=== PATIENT | female | born 1930 | race Caucasian/White ===

== ENCOUNTER 2017-04-20 18:56 | Emergency (ER) | payer MEDICARE, OTHER ==
--- NOTE | 2017-04-20 23:01 | RAD ---
LEFT KNEE FOUR VIEWS 04/20/2017 FINDINGS: The bones are mildly osteopenic, which could mask some subtle fractures. [id number], no fractur e is appreciated. No joint effusion is seen. There is mild medial joint space narrowing and osteop hytes. A jillian of bone above the patella does not appear acute. IMPRESSION: No acute bony findings. Mild lateral compartment arthritis. POS: HOME
== END 2017-04-20 19:58 | disposition home or self-care (01) ==
LOC: BURERS 18:56
DX: S81.012A Laceration without foreign body, left knee, initial encounter (principal); E11.9 Type 2 diabetes mellitus without complications; I10 Essential (primary) hypertension; E78.5 Hyperlipidemia, unspecified; F32.9 Major depressive disorder, single episode, unspecified; F17.210 Nicotine dependence, cigarettes, uncomplicated; W10.9XXA Fall (on) (from) unspecified stairs and steps, initial encounter
CPT/HCPCS: 12002

== ENCOUNTER 2017-11-29 22:49 | Emergency (ER) | payer MEDICARE, OTHER ==
[2017-11-29] MEDS ORDERED: AMOXicillin 250 MG CAP ONE (23:07)
[2017-11-29] MEDS ORDERED: Oxymetazoline HCl 0.05% ( 15 ML ) ONE (23:07)
== END 2017-11-29 23:15 | disposition home or self-care (01) ==
LOC: BURERS 22:49
DX: J06.9 Acute upper respiratory infection, unspecified (principal); E11.9 Type 2 diabetes mellitus without complications; I10 Essential (primary) hypertension; E78.5 Hyperlipidemia, unspecified; F32.9 Major depressive disorder, single episode, unspecified; F17.210 Nicotine dependence, cigarettes, uncomplicated
CPT/HCPCS: 99283

== ENCOUNTER 2019-03-07 14:47 | Inpatient (IN) | payer MEDICARE, OTHER ==
[2019-03-07 15:15] LABS: #Lymphocytes 0.5 thou/uL (1.20-3.40); #Monocytes 0.3 thou/uL (0.11-0.59); #Neutrophils 3.8 thou/uL (1.40-6.50); %Basophils 0.9 % (0.0-1.0); %Eosinophils 0.4 % (0.0-10.0); %Lymphocytes 9.8 % (21.0-51.0); %Monocytes 6.9 % (0.0-10.0); Hemoglobin 11.3 g/dL (12.0-16.0); Mean Corpuscular HGB CONC 31.6 g/dL (32.0-36.0); Mean Corpuscular Volume 88.6 fL (78.0-98.0); Mean Platelet Volume 6.6 fL (7.4-10.4); Platelet Count 165 thou/uL (130-400); RBC Distribution Width 13.6 % (11.5-14.5); Red Blood Cell (RBC) Count 4.02 mill/uL (4.20-5.40); White Blood Cell (WBC) Count 4.6 thou/uL (4.8-10.8)
[2019-03-07 15:30] LABS: ALT (SGPT) 22 U/L (8-55); AST (SGOT) 25 U/L (5-34); Alkaline Phosphatase 93 U/L (40-150); Anion Gap 14 mmol/L (10-20); BUN (Urea Nitrogen) 21 mg/dL (9.8-20.1); Bilirubin, Total 0.7 mg/dL (0.2-1.2); CK (CPK) 56 U/L (29-168); Calc. Creatinine Clearance 0 mL/min (70-130); Calcium 8.9 mg/dL (7.8-10.44); Carbon Dioxide 18 mmol/L (23-31); Chloride 108 mmol/L (98-107); Estimated GFR-MDRD 63; Globulin 3.4 g/dL (2.4-3.5); Glucose 172 mg/dL (83-110); Protein, Total 7.4 g/dL (6.0-8.3); Sodium 136 mmol/L (136-145)
[2019-03-07] MEDS ORDERED: Acetaminophen 650 MG Suppository ONE (15:30)
[2019-03-07 16:49] LABS: Clarity Cloudy (Clear)
[2019-03-07 16:50] LABS: Bilirubin Small (Negative); Blood, Urine Moderate (Negative); Glucose, Urine (Dipstick) Negative (Negative); Leukocyte Moderate (Negative); Nitrite Positive (Negative); Protein, Urine (Dipstick) 30 mg/dL (Neg-Trace); Specific Gravity, Urine 1.025 (1.005-1.030); Urobilinogen 0.2 mg/dL (0.2-1.0)
[2019-03-07 16:56] LABS: Bacteria/HPF 4+ HPF (None Seen); Oval Fat Bodies/HPF None Seen HPF (None Seen); RBC/HPF 0-3 HPF (0-3); Renal Epithelial None Seen HPF (0-3); Transitional Epithelial NONE SEEN HPF (0-3); Trichomonas/HPF None Seen HPF (None Seen); Yeast-All Forms None Seen HPF (None Seen)
[2019-03-07 16:57] LABS: Crystals/HPF None Seen HPF (Negative); Hyaline Casts/LPF NONE SEEN LPF (0-3 Hyaline); Other Casts/LPF None Seen LPF (0-3 Hyaline); Sperm/HPF None Seen HPF (None Seen)
[2019-03-07] MEDS ORDERED: cefTRIAXone\\ROCEPHIN 2 GM VIAL ONE (17:11)
[2019-03-07] MEDS ORDERED: Sodium Chloride 0.9% 100 ML ONE (17:12)
[2019-03-07] MEDS ORDERED: Acetaminophen 325 MG TAB PO PRN (18:23)
[2019-03-07] MEDS ORDERED: Ondansetron ODT 4 MG TAB SL PRN (18:23)
[2019-03-07] MEDS ORDERED: Ondansetron PF 4 MG/2 ML Vial IVP PRN (18:23)
[2019-03-07] MEDS ORDERED: Dextrose 5 %-0.45 % NaCl 1,000 ML IV SCH (18:30)
--- NOTE | 2019-03-07 18:43 | RAD ---
PORTABLE CHEST: 03/07/19 An AP portable film at 1511 is compared with a 09/21/15 study. The heart is normal in size and the lungs are clear. No infiltrate or effusion was seen. A calcified granuloma is noted in the right upper lobe that was present previously. IMPRESSION: No acute thoracic findings. POS: HOME
[2019-03-07] MEDS ORDERED: Dextrose 5% in Water 1,000 ML IV PRN (19:27)
[2019-03-07] MEDS ORDERED: Dextrose 50% Abboject 50 ML SYRINGE SLOW IVP PRN (19:27)
[2019-03-07] MEDS ORDERED: HumaLOG 300 UNITS/3 ML VIAL SC PRN (19:27)
[2019-03-07 20:01] VITALS: BMI 22.6
[2019-03-07 21:36] LABS: Troponin I Less than 0.010 ng/mL (< 0.028)
[2019-03-07] MEDS: Enoxaparin Sodium 30 MG/0.3 ML SYRINGE SC SCH (21:41)
[2019-03-07] MEDS: Sodium Chloride 0.45% 1,000 ML IV SCH (21:45)
[2019-03-07] MEDS: Atorvastatin Calcium 10 MG TAB PO SCH (21:59)
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
[2019-03-08 04:19] LABS: Anion Gap 12 mmol/L (10-20); BUN (Urea Nitrogen) 15 mg/dL (9.8-20.1); Calc. Creatinine Clearance 59 mL/min (70-130); Calcium 7.9 mg/dL (7.8-10.44); Carbon Dioxide 19 mmol/L (23-31); Chloride 109 mmol/L (98-107); Estimated GFR-MDRD Greater than 90; Glucose 87 mg/dL (83-110); Potassium 3.5 mmol/L (3.5-5.1); Sodium 136 mmol/L (136-145)
[2019-03-08 04:21] LABS: Troponin I Less than 0.010 ng/mL (< 0.028)
[2019-03-08 04:30] LABS: #Eosinphils 0.1 thou/uL (0.0-0.7); #Lymphocytes 0.9 thou/uL (1.20-3.40); #Monocytes 0.3 thou/uL (0.11-0.59); #Neutrophils 1.6 thou/uL (1.40-6.50); %Basophils 1.2 % (0.0-1.0); %Lymphocytes 30.6 % (21.0-51.0); %Monocytes 11.4 % (0.0-10.0); %Neutrophils 52.8 % (42.0-75.0); Band 2 % (5-11); Eosinophils 3 % (0-10); Hemoglobin 9.3 g/dL (12.0-16.0); Lymphocytes 31 % (21-51); MDiff Complete? YES; Mean Corpuscular HGB CONC 31.3 g/dL (32.0-36.0); Mean Corpuscular Hemoglobin 27.8 pg (27.0-31.0); Mean Corpuscular Volume 88.8 fL (78.0-98.0); Monocytes 11 % (0-10); Neutrophil 52 % (42-75); Ovalocytes SLIGHT = 2-5 cells (100X) (0-1/hpf); Platelet Count 115 thou/uL (130-400); Platelet Morphology Comment Appears Decreased; RBC Distribution Width 13.2 % (11.5-14.5); Red Blood Cell (RBC) Count 3.33 mill/uL (4.20-5.40)
[2019-03-08] MEDS: Sodium Chloride 0.45% 1,000 ML IV SCH ×4 (06:07→20:14)
[2019-03-08] MEDS: Cyanocobalamin (Vitamin B-12) 1,000 MCG TAB PO SCH (08:36)
[2019-03-08] MEDS: Ferrous Sulfate 325 MG TAB PO SCH ×2 (08:36→17:47)
[2019-03-08] MEDS: Fish Oil 1,000 MG CAP PO SCH (08:36)
[2019-03-08] MEDS: Aspirin 81 mg Enteric Coated Tablet PO SCH (08:37)
[2019-03-08] MEDS: metFORMIN 500 MG TAB PO SCH (08:37)
[2019-03-08] MEDS: cefTRIAXone\\ROCEPHIN 1 GM in Sodium Chloride 0.9% 100 ML IVPB SCH (08:38)
[2019-03-08] MEDS ORDERED: Losartan Potassium 50 MG TAB PO SCH (19:00)
--- NOTE | 2019-03-08 19:30 | PRG ---
DATE OF SERVICE: 03/08/2019 PRIMARY CARE PHYSICIAN: KADIE Deluca, at [facility] in [place]. SUBJECTIVE: The patient is doing well, she denies any pain, she has requested to remove the IV fluids. According to her daughter, she did not sleep well, she is requesting for a sleeping medicine tonight. OBJECTIVE: VITAL SIGNS: Blood pressure of 169/72, temperature of 98.1, pulse rate of 57, respiratory rate of 16, and O2 saturations 98% on room air. GENERAL: The patient is awake, oriented to herself, afebrile, not in respiratory distress. HEENT: Normocephalic and atraumatic. Pupils are equally reactive to light. NECK: Supple. Negative for lymphadenopathy. CHEST AND LUNGS: Symmetrical expansion, decreased breath sounds. Occasional rhonchi. Positive for cough. CARDIOVASCULAR: Slightly bradycardic. Regular rhythm. Negative for murmur. ABDOMEN: Flat, soft, nontender. Normoactive bowel sounds. EXTREMITIES: Symmetrical range of motion. Negative for edema. Negative for Homans sign. NEUROLOGIC: No focal deficits. Mental status appropriate for age and history of dementia. PSYCH: Appropriate affect and demeanor. LABORATORY DATA: WBC of 3, hemoglobin of 9.3, hematocrit of 29.6, and platelet count of 115. BMP with sodium of 136, potassium of 3.5, chloride of 109, carbon dioxide of 19, creatinine of 0.59, GFR of 90, glucose of 87. BNP of 210. Troponin x2 were negative. Urine culture positive for gram-negative rods. Blood cultures preliminary were negative. ASSESSMENT: 1. An 89-year-old female with altered mental status and syncopal attack of unknown duration. 2. Urinary tract infection with negative blood cultures, urine culture showing gram-negative virginia. 3. History of recurrent urinary tract infections, last episode two months ago. 4. Diabetes mellitus. 5. Chronic bronchitis with chronic obstructive pulmonary disease. 6. Long history of smoking. 7. Anemia of chronic disease. 8. Hypertension. 9. Hyperlipidemia. 10. Worsening dementia. 11. Hearing problems. 12. Bilateral low vision. 13. Weak gait with recurrent falls. 14. Insomnia. PLAN: 1. Continue present IV Rocephin 2 g every 24 hours, deescalate the dosage if improvement with clinical symptoms. Decrease IV fluid rate to normal saline to 50 mL/h. 2. Continue DVT prophylaxis with Lovenox. 3. Initiate antihypertensive medications, we will start losartan 50 mg daily. 4. Initiate low dose of trazodone prior to bedtime. 5. Possible discharge within the next 48 hours. Job ID: [id number]
[2019-03-08] MEDS: Enoxaparin Sodium 30 MG/0.3 ML SYRINGE SC SCH (21:22)
[2019-03-08] MEDS: Atorvastatin Calcium 10 MG TAB PO SCH (21:22)
[2019-03-08] MEDS ORDERED: traZODone HCl 50 MG TAB PO PRN (22:00)
[2019-03-09] MEDS: Sodium Chloride 0.45% 1,000 ML IV SCH ×3 (03:25→19:59)
[2019-03-09] MEDS: Fish Oil 1,000 MG CAP PO SCH (07:41)
[2019-03-09] MEDS: Ferrous Sulfate 325 MG TAB PO SCH ×2 (07:42→18:20)
[2019-03-09] MEDS: metFORMIN 500 MG TAB PO SCH (07:42)
[2019-03-09] MEDS: Aspirin 81 mg Enteric Coated Tablet PO SCH (07:42)
[2019-03-09] MEDS: Cyanocobalamin (Vitamin B-12) 1,000 MCG TAB PO SCH (07:43)
[2019-03-09] MEDS: cefTRIAXone\\ROCEPHIN 1 GM in Sodium Chloride 0.9% 100 ML IVPB SCH (07:45)
--- NOTE | 2019-03-09 19:42 | PRG ---
DATE OF SERVICE: 03/09/2019 SUBJECTIVE: The patient did not sleep well last night, she was agitated because of her IV site, she requested to have them removed, her trazodone did not help her sleep. She is requesting to be discharged. OBJECTIVE: VITAL SIGNS: Blood pressure 174/79, pulse of 98.9, respiratory rate of 20, and O2 saturations 97% on room air. GENERAL: The patient is awake, calm, oriented to herself, afebrile, not in respiratory distress. HEENT: Normocephalic and atraumatic. Pupils are equally reactive to light. NECK: Supple. Negative for lymphadenopathy. CHEST AND LUNGS: Positive for cough. Symmetrical expansion. Coarse breath sounds. CARDIOVASCULAR: Regular rate and rhythm. Negative for murmur. ABDOMEN: Flat, soft, nontender. EXTREMITIES: Symmetrical range of motion. Negative for bruising. Negative for edema. Negative for Homans sign. NEUROLOGIC: No focal deficits, mental status appropriate for age, and history of dementia. PSYCH: Irritable. LABORATORY DATA: Microbiology, urine culture showed gram-negative virginia. ID and sensitivity are pending. Blood culture x2, both negative. ASSESSMENT: 1. An 89-year-old female with altered mental status and syncopal attack of unknown duration, improving. 2. Urinary tract infection with negative blood cultures, urine culture showing gram-negative virginia. 3. History of recurrent urinary tract infection, last episode was two months ago. 4. Hypertension, uncontrolled. 5. Diabetes mellitus. 6. Chronic bronchitis with chronic obstructive pulmonary disease. 7. Long history of smoking. 8. Anemia of chronic disease. 9. Hyperlipidemia. 10. Worsening dementia with agitation. 11. Hearing problems. 12. Bilateral low vision. 13. Weak gait with recurrent falls. 14. Insomnia. PLAN: 1. We will discontinue IV fluids/IV site. We will discharge the patient in a.m. with appropriate oral antibiotics. 2. Adjust losartan fortnight to 100 mg daily. Continue trazodone p.r.n. for insomnia. Job ID: [id number]
[2019-03-09] MEDS: Atorvastatin Calcium 10 MG TAB PO SCH (19:55)
[2019-03-09] MEDS: Enoxaparin Sodium 30 MG/0.3 ML SYRINGE SC SCH (19:55)
[2019-03-09] MEDS ORDERED: Losartan Potassium 50 MG TAB PO SCH (20:00)
[2019-03-10 05:52] VITALS: TEMP 98.2
[2019-03-10] MEDS: Fish Oil 1,000 MG CAP PO SCH (08:42)
[2019-03-10] MEDS: Aspirin 81 mg Enteric Coated Tablet PO SCH (08:42)
[2019-03-10] MEDS: Cyanocobalamin (Vitamin B-12) 1,000 MCG TAB PO SCH (08:42)
[2019-03-10] MEDS: Ferrous Sulfate 325 MG TAB PO SCH (08:43)
[2019-03-10] MEDS: metFORMIN 500 MG TAB PO SCH (08:43)
[2019-03-10 09:16] VITALS: BP 145/64
[2019-03-10] MEDS ORDERED: cefTRIAXone\\ROCEPHIN 1 GM VIAL IM SCH (10:00)
== END 2019-03-10 11:20 | disposition home or self-care (01) | DRG 690 ==
LOC: BURERS 14:47 → BURMED 17:45
PROVIDERS: ADMIT Family Medicine; ATTEND Family Medicine
DX: N39.0 Urinary tract infection, site not specified (principal); J44.9 Chronic obstructive pulmonary disease, unspecified; E11.9 Type 2 diabetes mellitus without complications; F17.200 Nicotine dependence, unspecified, uncomplicated; D63.8 Anemia in other chronic diseases classified elsewhere; E78.5 Hyperlipidemia, unspecified; F03.90 Unspecified dementia, unspecified severity, without behavioral disturbance, psychotic disturbance, mood disturbance, and anxiety; H91.90 Unspecified hearing loss, unspecified ear; H54.3 Unqualified visual loss, both eyes; G47.00 Insomnia, unspecified; B96.20 Unspecified Escherichia coli [E. coli] as the cause of diseases classified elsewhere; R29.6 Repeated falls; Z87.440 Personal history of urinary (tract) infections
CPT/HCPCS: 36415; 36416; 71045; 80048; 80053; 81003; 81015; 82550; 83605; 83880; 84484; 85025; 87040; 87077; 87086; 87186; 87804; A4353; J0696; J1650; J3490

== ENCOUNTER 2019-09-16 18:06 | Emergency (ER) | payer MEDICARE, OTHER ==
[2019-09-16] MEDS ORDERED: traMADol HCl 50 MG TAB ONE (18:44)
--- NOTE | 2019-09-16 23:48 | RAD ---
LEFT HIP TWO VIEWS: Date: 09-16-19 FINDINGS: No fracture or dislocation is seen. The joint space is normal in width. The adjacent pubic ring appea rs intact. IMPRESSION: No acute findings. POS: HOME
--- NOTE | 2019-09-16 23:48 | RAD ---
LEFT LEG TWO VIEWS: Date: 09-16-19 FINDINGS: There is a fracture of the proximal fibular shaft with only slight displacement. The tibia appears in tact. IMPRESSION: Fracture of the proximal fibular shaft. POS: HOME
== END 2019-09-16 19:10 | disposition home or self-care (01) ==
LOC: BURERS 18:06
DX: S82.832A Other fracture of upper and lower end of left fibula, initial encounter for closed fracture (principal); S70.02XA Contusion of left hip, initial encounter; E11.9 Type 2 diabetes mellitus without complications; E78.5 Hyperlipidemia, unspecified; I10 Essential (primary) hypertension; F17.210 Nicotine dependence, cigarettes, uncomplicated; W18.30XA Fall on same level, unspecified, initial encounter; Z79.899 Other long term (current) drug therapy
CPT/HCPCS: 27781

== ENCOUNTER 2019-12-19 11:29 | Inpatient (IN) | payer MEDICARE, OTHER ==
[2019-12-19] MEDS ORDERED: Ondansetron PF 4 MG/2 ML Vial ONE (11:47)
[2019-12-19] MEDS ORDERED: Fentanyl 100 MCG/2 ML VIAL ONE (11:47)
[2019-12-19 12:05] LABS: #Basophils 0.1 thou/uL (0.0-0.2); #Eosinphils 0.2 thou/uL (0.0-0.7); #Lymphocytes 1.7 thou/uL (1.20-3.40); #Monocytes 0.7 thou/uL (0.11-0.59); #Neutrophils 5.1 thou/uL (1.40-6.50); %Basophils 0.8 % (0.0-1.0); %Eosinophils 2.1 % (0.0-10.0); %Lymphocytes 22.2 % (21.0-51.0); %Monocytes 8.7 % (0.0-10.0); %Neutrophils 66.3 % (42.0-75.0); Hemoglobin 11.8 g/dL (12.0-16.0); Mean Corpuscular HGB CONC 31.1 g/dL (32.0-36.0); Mean Corpuscular Volume 83.6 fL (78.0-98.0); Mean Platelet Volume 8.1 fL (7.4-10.4); Platelet Count 235 thou/uL (130-400); RBC Distribution Width 21.3 % (11.5-14.5); Red Blood Cell (RBC) Count 4.54 mill/uL (4.20-5.40); White Blood Cell (WBC) Count 7.7 thou/uL (4.8-10.8)
[2019-12-19 12:16] LABS: ALT (SGPT) 17 U/L (8-55); AST (SGOT) 23 U/L (5-34); Albumin 3.6 g/dL (3.4-4.8); Alkaline Phosphatase 263 U/L (40-110); Anion Gap 19 mmol/L (10-20); BUN (Urea Nitrogen) 12 mg/dL (9.8-20.1); Bilirubin, Total 0.8 mg/dL (0.2-1.2); Calc. Creatinine Clearance 0 mL/min (70-130); Carbon Dioxide 21 mmol/L (23-31); Chloride 101 mmol/L (98-107); Estimated GFR-MDRD 72; Globulin 3.4 g/dL (2.4-3.5); Glucose 162 mg/dL (83-110); Lipase 12 U/L (8-78); Potassium 3.8 mmol/L (3.5-5.1); Sodium 137 mmol/L (136-145)
[2019-12-19 12:22] LABS: Crenated RBC SLIGHT = 1-5 cells (100X) (None Seen); Elliptocytes SLIGHT = 2-5 cells (100X) (0-1/hpf); MDiff Complete? YES; Macrocytosis SLIGHT = 6-15 cells (100X) (0-5/hpf); Microcytosis SLIGHT = 6-15 cells (100X) (0-5/hpf)
[2019-12-19] MEDS ORDERED: Sodium Chloride 0.9% 100 ML ONE (12:26)
[2019-12-19] MEDS ORDERED: Piperacillin/Tazobactam 4.5 GM VIAL ONE (12:26)
[2019-12-19 13:00] LABS: Bilirubin Small (Negative); Blood, Urine Negative (Negative); Clarity Clear (Clear); Glucose, Urine (Dipstick) Negative (Negative); Leukocyte Negative (Negative); Nitrite Negative (Negative); Protein, Urine (Dipstick) 30 mg/dL (Neg-Trace)
[2019-12-19 13:03] LABS: Bacteria/HPF Rare-Few HPF (None Seen); Mucous/LPF 1+ LPF (<2+); RBC/HPF 0-3 HPF (0-3); Squamous Epithelial 0-3 HPF (0-3); WBC/HPF 0-3 HPF (0-3)
--- NOTE | 2019-12-19 13:06 | CT ---
CT BRAIN WITHOUT CONTRAST: 12/19/2019 FINDINGS: Diffuse atrophy and mild compensatory dilatation of the ventricles is noted on this noncontrast study . There is evidence of deep white matter lucency, typical of chronic microvascular ischemia. No signs of acute stroke are found. No intracranial bleeding or extraaxial hematoma is seen. No sign of tumor or edema is found. The skull appears intact. The nasal septum is deviated to the right, which is most likely old. The vi sible paranasal sinuses are clear, except for some mucosal thickening in the maxillary sinuses. IMPRESSION: 1. Atrophy and chronic ischemic changes but no acute findings. 2. Maxillary sinus disease. POS: HOME
--- NOTE | 2019-12-19 13:12 | CT ---
CT LUMBAR SPINE: 12/19/2019 HISTORY/TECHNIQUE: A spiral CT of the lumbar spine was performed for evaluation after a fall. Axial slices were acquired followed by coronal and sagittal reconstructions. FINDINGS: There is a fracture through the left transverse process of L5 with only minimal separation. There is also a fracture through the left sacral ala of S1. A small subtle hairline fracture is seen through t he right sacral ala of approximately S2. The latter is difficult to see well but holds up on a separa te CT of the hip film. I would note that on the sagittal view that S1 is angulated anteriorly, compar ed to the rest of the sacrum. I cannot tell if this is because of this injury or a prior one. The vertebral bodies all appear intact. The disk spaces show no exceptional narrowing. There is signi ficant facet arthritis at multiple levels. Findings by level follow: T12-L1: No acute findings. L1-L2: No acute findings. L2-L3: No acute findings. L3-L4: Mild facet hypertrophy. There is some concentric bulging of the disk along with ligamentous hy pertrophy that yields a very slight degree of central canal stenosis. L4-L5: Concentric bulging of the disk. Facet arthritis, worse on the left than the right. L5-S1: No focal disk protrusion. See comments above regarding various fractures of L5 and S1. The SI joints are not shown completely but do not appear widened. In addition to the above, S1 is acutely angulated anteriorly with respect to S2, indicating injury to the sacrum at the S1-S2 junction. Other incidental findings in this patient include parapelvic cysts of the left kidney and some nonobs tructing renal calculi in the left kidney. IMPRESSION: 1. Fracture of the left transverse process of L5. 2. Fracture of the left sacral ala of S1. 3. Hairline fracture through one of the upper sacral ala on the right, approximately S2. S1 could be involved as well. 4. Vertebral bodies appear intact. 5. Parapelvic cysts and nonobstructing calculi, left kidney. 6. Injury to the S1-S2 junction with anterior angulation of S1. Presumed to be related to recent trau ma, but there is a chance this could be old. PLEASE SEE CT PELVIS DICTATION FOR ADDITIONAL FINDINGS. POS: HOME
--- NOTE | 2019-12-19 13:20 | CT ---
CT RIGHT HIP: 12/19/2019 HISTORY/TECHNIQUE: A spiral CT of the hip was done following a fall. FINDINGS: No hip fracture is noted. The adjacent pubic ring and acetabulum appear intact. Arthritic changes of the hip joint are minimal for age. Fractures involving the right side of the sacrum are noted, as well as the left. See CT lumbar spine for details. Finally, there appears to be a stone present in the bladder, measuring 2 cm in diameter. IMPRESSION: 1. No hip fracture is seen. 2. Sacral fractures, as noted. Please see CT of the lumbar spine report for details. 3. Bladder stone. PLEASE CT PELVIS REPORT FOR ADDITIONAL FINDINGS IN THE REGION. Results of all scans called to Dr. Moyer at 1241 hours on 12/19/2019. CODE CR POS: HOME
[2019-12-19] MEDS ORDERED: Morphine 2 MG/ML SYRINGE ONE ×2 (13:53→21:37)
[2019-12-19] MEDS ORDERED: Ketorolac Tromethamine 30 MG/ML VIAL ONE (13:53)
[2019-12-19 15:11] LABS: Lactic Acid 1.2 mmol/L (0.5-2.2)
[2019-12-19] MEDS ORDERED: Ondansetron ODT 4 MG TAB SL PRN (16:02)
[2019-12-19] MEDS ORDERED: Acetaminophen 325 MG TAB PO PRN ×2 (16:02→16:45)
[2019-12-19] MEDS ORDERED: Ondansetron PF 4 MG/2 ML Vial IVP PRN (16:02)
[2019-12-19] MEDS ORDERED: Ventolin HFA Inhaler 60 PUFF INHALER INH PRN (16:44)
[2019-12-19] MEDS ORDERED: Senokot S 8.6-50 MG TAB PO PRN (16:45)
[2019-12-19] MEDS ORDERED: HumaLOG 300 UNITS/3 ML VIAL SC PRN ×2 (16:57)
[2019-12-19] MEDS ORDERED: Dextrose 5% in Water 1,000 ML IV PRN (16:57)
[2019-12-19] MEDS ORDERED: Dextrose 50% Abboject 50 ML SYRINGE SLOW IVP PRN (16:57)
--- NOTE | 2019-12-19 17:20 | CT ---
CT OF THE PELVIS 12/19/[address] of the pelvis was performed for evaluation in this patient with trauma. Comparison is made with the recent CT lumbar spine and hip series that show portions of the pelvis. A fracture is present through the left transverse process of L5 with minimal displacement. There are also fracture lines in the left sacral ala of S1. One is located more peripherally near the SI joint and the other one is located medially and extends into the left S1 foramen. On several images there i s the suggestion of a hairline fracture through the right sacral ala near the SI joint, approximately the S2 level. Looking at the sagittal view of the sacrum, one sees that S1 is acutely angulated anteriorly at the S 1-S2 junction indicating a fracture here between the two bones. I cannot tell if this recent or old. In the remainder of the pelvis, a small nondisplaced fracture is seen through the right iliac bone. T here are some subtle areas in the left iliac bone that suggests there is probably a hairline fracture here as well. There is no evidence of free fluid in the pelvis or a pelvic hematoma. As mentioned on prior scans, a bladder stone is noted in the urinary bladder. IMPRESSION: 1. Fracture of the left transverse process of L5. 2. Several fracture lines in the left sacral ala of S1, one of which extends into the left S1 ne ural foramen. 3. Probable hairline fracture of the right sacral ala, approximately S2. 4. Nondisplaced fracture of the right iliac bone. There may be a hairline fracture of the left i liac bone as well. 5. Fracture between S1 and S2 bodies with acute anterior angulation of the S1 body, age indeterm inate. Findings discussed with Dr. Moyer at 1407 on 12/19/2019. POS: HOME
[2019-12-19] MEDS: Sodium Chloride 0.9% 1,000 ML IV SCH (20:27)
[2019-12-19] MEDS: Ferrous Sulfate 325 MG TAB PO SCH (20:36)
[2019-12-19] MEDS: Morphine 2 MG/ML SYRINGE SLOW IVP PRN (22:03)
[2019-12-19] MEDS: Acetaminophen 325 MG TAB PO SCH (22:05)
[2019-12-19] MEDS: Atorvastatin Calcium 10 MG TAB PO SCH (22:05)
[2019-12-19] MEDS: Famotidine 20 MG TAB PO SCH (22:05)
[2019-12-20] MEDS: HYDROcodone/Acetaminophen 5/325 mg Tablet PO PRN ×3 (02:34→14:49)
[2019-12-20] MEDS ORDERED: Morphine 2 MG/ML SYRINGE ONE ×3 (03:49→23:14)
[2019-12-20] MEDS: Morphine 2 MG/ML SYRINGE SLOW IVP PRN ×3 (03:56→23:17)
[2019-12-20 06:07] LABS: Hemoglobin 9.1 g/dL (12.0-16.0); Mean Corpuscular HGB CONC 29.8 g/dL (32.0-36.0); Mean Corpuscular Volume 83.8 fL (78.0-98.0); Mean Platelet Volume 8.1 fL (7.4-10.4); Platelet Count 135 thou/uL (130-400); RBC Distribution Width 21.3 % (11.5-14.5); Red Blood Cell (RBC) Count 3.62 mill/uL (4.20-5.40)
[2019-12-20 06:19] LABS: #Eosinphils 0.2 thou/uL (0.0-0.7); #Lymphocytes 0.7 thou/uL (1.20-3.40); #Monocytes 0.3 thou/uL (0.11-0.59); #Neutrophils 1.6 thou/uL (1.40-6.50); %Basophils 0.9 % (0.0-1.0); %Eosinophils 8.7 % (0.0-10.0); %Lymphocytes 25.4 % (21.0-51.0); %Monocytes 10.9 % (0.0-10.0); %Neutrophils 54.1 % (42.0-75.0); Anisocytosis MODERATE=16-30 cells (100X) (0-5/hpf); MDiff Complete? YES; Ovalocytes SLIGHT = 2-5 cells (100X) (0-1/hpf); Platelet Morphology Comment Appears Decreased
[2019-12-20] MEDS: Sodium Chloride 0.9% 1,000 ML IV SCH ×2 (08:29→20:35)
[2019-12-20] MEDS: Enoxaparin Sodium 30 MG/0.3 ML SYRINGE SC SCH (08:33)
[2019-12-20] MEDS: Famotidine 20 MG TAB PO SCH ×2 (08:38→20:30)
[2019-12-20] MEDS: Fish Oil 1,000 MG CAP PO SCH (08:38)
[2019-12-20] MEDS: Acetaminophen 325 MG TAB PO SCH ×2 (08:38→20:30)
[2019-12-20] MEDS: Losartan Potassium 50 MG TAB PO SCH (08:38)
[2019-12-20] MEDS: metFORMIN 500 MG TAB PO SCH (08:39)
[2019-12-20] MEDS: Ferrous Sulfate 325 MG TAB PO SCH ×2 (08:39→17:42)
[2019-12-20] MEDS ORDERED: Prevnar 13-Val Conj/PF 0.5 ML SYRINGE IM ONE (09:00)
[2019-12-20] MEDS ORDERED: FLU VACC QS2019-20(6MOS UP)/PF 60 MCG/0.5 ML SYRINGE IM ONE (09:00)
[2019-12-20] MEDS: Citalopram 20 MG TAB PO SCH (10:11)
[2019-12-20] MEDS: Fluconazole 100 MG TAB PO SCH (10:12)
[2019-12-20] MEDS: risperiDONE 0.5 MG TAB PO SCH (20:30)
[2019-12-20] MEDS: Atorvastatin Calcium 10 MG TAB PO SCH (20:31)
[2019-12-20] MEDS: Naproxen 500 MG TAB PO SCH (20:31)
[2019-12-20] MEDS: Nystatin Powder 15 GM BOT TOP SCH (20:35)
[2019-12-21] MEDS: Famotidine 20 MG TAB PO SCH ×2 (08:31→21:07)
[2019-12-21] MEDS: Naproxen 500 MG TAB PO SCH ×2 (08:31→21:07)
[2019-12-21] MEDS: Fish Oil 1,000 MG CAP PO SCH (08:32)
[2019-12-21] MEDS: Citalopram 20 MG TAB PO SCH (08:32)
[2019-12-21] MEDS: Ferrous Sulfate 325 MG TAB PO SCH ×2 (08:32→17:55)
[2019-12-21] MEDS: Losartan Potassium 50 MG TAB PO SCH (08:38)
[2019-12-21] MEDS: metFORMIN 500 MG TAB PO SCH (08:39)
[2019-12-21] MEDS: Enoxaparin Sodium 30 MG/0.3 ML SYRINGE SC SCH (08:39)
[2019-12-21] MEDS: Acetaminophen 325 MG TAB PO SCH ×2 (08:39→21:07)
[2019-12-21] MEDS: HYDROcodone/Acetaminophen 5/325 mg Tablet PO PRN (08:51)
[2019-12-21] MEDS: Sodium Chloride 0.9% 1,000 ML IV SCH (10:19)
[2019-12-21] MEDS: Nystatin Powder 15 GM BOT TOP SCH ×2 (10:22→21:08)
[2019-12-21 11:19] VITALS: BMI 28.2
[2019-12-21] MEDS: Atorvastatin Calcium 10 MG TAB PO SCH (21:07)
[2019-12-21] MEDS: risperiDONE 0.5 MG TAB PO SCH (21:07)
[2019-12-21] MEDS ORDERED: Morphine 2 MG/ML SYRINGE ONE (21:15)
[2019-12-21] MEDS: Morphine 2 MG/ML SYRINGE SLOW IVP PRN (21:17)
[2019-12-22] MEDS: Sodium Chloride 0.9% 1,000 ML IV SCH ×3 (00:56→21:55)
[2019-12-22] MEDS ORDERED: Morphine 2 MG/ML SYRINGE ONE ×2 (03:37→11:23)
[2019-12-22] MEDS: Morphine 2 MG/ML SYRINGE SLOW IVP PRN ×2 (03:41→11:37)
[2019-12-22 05:49] LABS: #Eosinphils 0.2 thou/uL (0.0-0.7); #Lymphocytes 0.5 thou/uL (1.20-3.40); #Monocytes 0.2 thou/uL (0.11-0.59); #Neutrophils 1.3 thou/uL (1.40-6.50); %Basophils 1.8 % (0.0-1.0); %Eosinophils 8.2 % (0.0-10.0); %Lymphocytes 24.2 % (21.0-51.0); %Monocytes 9.7 % (0.0-10.0); %Neutrophils 56.1 % (42.0-75.0); Anisocytosis SLIGHT = 6-15 cells (100X) (0-5/hpf); Elliptocytes SLIGHT = 2-5 cells (100X) (0-1/hpf); Hypochromia SLIGHT = 6-15 cells (100X) (0-5/hpf); MDiff Complete? YES; Mean Corpuscular HGB CONC 30.5 g/dL (32.0-36.0); Mean Corpuscular Hemoglobin 25.4 pg (27.0-31.0); Mean Corpuscular Volume 83.3 fL (78.0-98.0); Mean Platelet Volume 7.7 fL (7.4-10.4); Ovalocytes SLIGHT = 2-5 cells (100X) (0-1/hpf); Platelet Count 155 thou/uL (130-400); Platelet Morphology Comment Appears Adequate; RBC Distribution Width 20.8 % (11.5-14.5); Red Blood Cell (RBC) Count 3.95 mill/uL (4.20-5.40); White Blood Cell (WBC) Count 2.2 thou/uL (4.8-10.8)
[2019-12-22] MEDS: Enoxaparin Sodium 30 MG/0.3 ML SYRINGE SC SCH (08:57)
[2019-12-22] MEDS: Losartan Potassium 50 MG TAB PO SCH (08:57)
[2019-12-22] MEDS: Acetaminophen 325 MG TAB PO SCH ×2 (08:58→22:00)
[2019-12-22] MEDS: metFORMIN 500 MG TAB PO SCH (08:58)
[2019-12-22] MEDS: Fish Oil 1,000 MG CAP PO SCH (08:59)
[2019-12-22] MEDS: Ferrous Sulfate 325 MG TAB PO SCH ×2 (08:59→17:15)
[2019-12-22] MEDS: Naproxen 500 MG TAB PO SCH ×2 (08:59→22:00)
[2019-12-22] MEDS: Famotidine 20 MG TAB PO SCH ×2 (08:59→22:00)
[2019-12-22] MEDS: Nystatin Powder 15 GM BOT TOP SCH ×2 (09:03→22:00)
[2019-12-22] MEDS: HYDROcodone/Acetaminophen 5/325 mg Tablet PO PRN (09:22)
[2019-12-22] MEDS: Atorvastatin Calcium 10 MG TAB PO SCH (22:00)
[2019-12-22] MEDS: risperiDONE 0.5 MG TAB PO SCH (22:00)
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
[2019-12-23] MEDS: Fish Oil 1,000 MG CAP PO SCH (08:46)
[2019-12-23] MEDS: Enoxaparin Sodium 30 MG/0.3 ML SYRINGE SC SCH (08:46)
[2019-12-23] MEDS: Acetaminophen 325 MG TAB PO SCH ×2 (08:46→19:58)
[2019-12-23] MEDS: Famotidine 20 MG TAB PO SCH ×2 (08:48→19:58)
[2019-12-23] MEDS: Ferrous Sulfate 325 MG TAB PO SCH ×2 (08:49→16:29)
[2019-12-23] MEDS: Losartan Potassium 50 MG TAB PO SCH (08:49)
[2019-12-23] MEDS: Naproxen 500 MG TAB PO SCH ×2 (08:50→19:59)
[2019-12-23] MEDS: metFORMIN 500 MG TAB PO SCH (08:50)
[2019-12-23] MEDS: Nystatin Powder 15 GM BOT TOP SCH ×2 (08:53→19:59)
[2019-12-23] MEDS ORDERED: Morphine 2 MG/ML SYRINGE ONE ×2 (09:37→14:30)
[2019-12-23] MEDS: Morphine 2 MG/ML SYRINGE SLOW IVP PRN (09:40)
[2019-12-23] MEDS: Fluconazole 100 MG TAB PO SCH (11:10)
[2019-12-23] MEDS: HYDROcodone/Acetaminophen 5/325 mg Tablet PO PRN (13:07)
[2019-12-23] MEDS: risperiDONE 0.5 MG TAB PO SCH (19:58)
[2019-12-23] MEDS: Atorvastatin Calcium 10 MG TAB PO SCH (19:59)
[2019-12-24] MEDS: Naproxen 500 MG TAB PO SCH ×2 (08:52→22:13)
[2019-12-24] MEDS: metFORMIN 500 MG TAB PO SCH (08:52)
[2019-12-24] MEDS: Fish Oil 1,000 MG CAP PO SCH (08:52)
[2019-12-24] MEDS: Enoxaparin Sodium 30 MG/0.3 ML SYRINGE SC SCH (08:52)
[2019-12-24] MEDS: Famotidine 20 MG TAB PO SCH ×2 (08:53→22:14)
[2019-12-24] MEDS: Ferrous Sulfate 325 MG TAB PO SCH ×2 (08:53→16:34)
[2019-12-24] MEDS: Losartan Potassium 50 MG TAB PO SCH (08:53)
[2019-12-24] MEDS: Acetaminophen 325 MG TAB PO SCH ×2 (08:53→22:14)
[2019-12-24] MEDS: Sodium Chloride 0.9% 1,000 ML IV SCH (08:54)
[2019-12-24] MEDS: Nystatin Powder 15 GM BOT TOP SCH ×2 (08:55→22:15)
[2019-12-24] MEDS: HYDROcodone/Acetaminophen 5/325 mg Tablet PO PRN (13:13)
[2019-12-24] MEDS: risperiDONE 0.5 MG TAB PO SCH (22:14)
[2019-12-24] MEDS: Atorvastatin Calcium 10 MG TAB PO SCH (22:15)
[2019-12-25] MEDS: Enoxaparin Sodium 30 MG/0.3 ML SYRINGE SC SCH (08:05)
[2019-12-25] MEDS: Losartan Potassium 50 MG TAB PO SCH (08:06)
[2019-12-25] MEDS: Famotidine 20 MG TAB PO SCH ×2 (08:06→22:31)
[2019-12-25] MEDS: Acetaminophen 325 MG TAB PO SCH ×2 (08:06→22:31)
[2019-12-25] MEDS: Ferrous Sulfate 325 MG TAB PO SCH ×2 (08:07→18:40)
[2019-12-25] MEDS: Naproxen 500 MG TAB PO SCH ×2 (08:07→22:31)
[2019-12-25] MEDS: Fish Oil 1,000 MG CAP PO SCH (08:07)
[2019-12-25] MEDS: metFORMIN 500 MG TAB PO SCH (08:07)
[2019-12-25] MEDS: Sodium Chloride 0.9% 1,000 ML IV SCH (08:08)
[2019-12-25] MEDS: Nystatin Powder 15 GM BOT TOP SCH ×2 (08:08→22:31)
[2019-12-25] MEDS ORDERED: Morphine 10 MG/ML VIAL ONE (10:22)
[2019-12-25] MEDS ORDERED: Morphine 2 MG/ML SYRINGE ONE (10:23)
[2019-12-25] MEDS: Morphine 2 MG/ML SYRINGE SLOW IVP PRN (10:27)
[2019-12-25] MEDS: HYDROcodone/Acetaminophen 5/325 mg Tablet PO PRN (15:56)
[2019-12-25] MEDS: Atorvastatin Calcium 10 MG TAB PO SCH (22:31)
[2019-12-25] MEDS: risperiDONE 0.5 MG TAB PO SCH (22:31)
[2019-12-26 05:36] LABS: #Eosinphils 0.3 thou/uL (0.0-0.7); #Lymphocytes 0.9 thou/uL (1.20-3.40); #Monocytes 0.3 thou/uL (0.11-0.59); #Neutrophils 1.5 thou/uL (1.40-6.50); %Basophils 0.9 % (0.0-1.0); %Eosinophils 9.4 % (0.0-10.0); %Lymphocytes 29.3 % (21.0-51.0); %Monocytes 10.6 % (0.0-10.0); %Neutrophils 49.8 % (42.0-75.0); Anisocytosis MODERATE=16-30 cells (100X) (0-5/hpf); Hemoglobin 9.8 g/dL (12.0-16.0); Hypochromia SLIGHT = 6-15 cells (100X) (0-5/hpf); MDiff Complete? YES; Mean Corpuscular HGB CONC 30.2 g/dL (32.0-36.0); Mean Corpuscular Hemoglobin 25.4 pg (27.0-31.0); Mean Corpuscular Volume 84.2 fL (78.0-98.0); Mean Platelet Volume 6.8 fL (7.4-10.4); Ovalocytes MODERATE= 6-15 cells (100X) (0-1/hpf); Platelet Count 143 thou/uL (130-400); Platelet Morphology Comment Appears Adequate; RBC Distribution Width 21.8 % (11.5-14.5); Red Blood Cell (RBC) Count 3.86 mill/uL (4.20-5.40)
[2019-12-26 06:06] VITALS: BP 189/88; TEMP 98.1
[2019-12-26] MEDS: Fish Oil 1,000 MG CAP PO SCH (08:59)
[2019-12-26] MEDS: Enoxaparin Sodium 30 MG/0.3 ML SYRINGE SC SCH (08:59)
[2019-12-26] MEDS: Acetaminophen 325 MG TAB PO SCH (08:59)
[2019-12-26] MEDS: Losartan Potassium 50 MG TAB PO SCH (09:00)
[2019-12-26] MEDS: Ferrous Sulfate 325 MG TAB PO SCH (09:00)
[2019-12-26] MEDS: Famotidine 20 MG TAB PO SCH (09:00)
[2019-12-26] MEDS: Naproxen 500 MG TAB PO SCH (09:00)
[2019-12-26] MEDS: metFORMIN 500 MG TAB PO SCH (09:00)
[2019-12-26] MEDS: Nystatin Powder 15 GM BOT TOP SCH (09:01)
[2019-12-26] MEDS: Fluconazole 100 MG TAB PO SCH (12:01)
[2019-12-26] MEDS: HYDROcodone/Acetaminophen 5/325 mg Tablet PO PRN (13:32)
== END 2019-12-26 17:45 | DRG 552 ==
LOC: BURERS 11:29 → BURMED 14:33
PROVIDERS: ADMIT Family Medicine; ATTEND Family Medicine
DX: S32.10XA Unspecified fracture of sacrum, initial encounter for closed fracture (principal); S32.058A Other fracture of fifth lumbar vertebra, initial encounter for closed fracture; S32.301A Unspecified fracture of right ilium, initial encounter for closed fracture; F03.90 Unspecified dementia, unspecified severity, without behavioral disturbance, psychotic disturbance, mood disturbance, and anxiety; E78.5 Hyperlipidemia, unspecified; I10 Essential (primary) hypertension; E11.9 Type 2 diabetes mellitus without complications; Z87.440 Personal history of urinary (tract) infections; Z90.710 Acquired absence of both cervix and uterus; W18.30XA Fall on same level, unspecified, initial encounter; R63.0 Anorexia; Z68.28 Body mass index [BMI] 28.0-28.9, adult; S32.19XA Other fracture of sacrum, initial encounter for closed fracture; G30.9 Alzheimer's disease, unspecified; F02.80 Dementia in other diseases classified elsewhere, unspecified severity, without behavioral disturbance, psychotic disturbance, mood disturbance, and anxiety
CPT/HCPCS: 36415; 36416; 51701; 70450; 72131; 72192; 80053; 81003; 81015; 83605; 83690; 84484; 85025; 87040; 87086; 94760; 96365; 96375; A4353; J1650; J1885; J2270; J2405; J2543; J3010; J3490; Q0162